=== PATIENT | male | born 1985 ===

== ENCOUNTER 2016-09-03 20:33 | Emergency (ER) | payer SELFPAY ==
[2016-09-03 20:41] VITALS: PULSE 63; RESP 16; TEMP 98.4; O2SAT 95
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
[2016-09-03] MEDS ORDERED: HYDROCOD/APAP 5/325 PREPACK#6 BTL TAKEHOME ONE (21:13)
== END 2016-09-03 21:23 | disposition home or self-care (01) ==
DX: S09.93XA Unspecified injury of face, initial encounter (principal); W50.1XXA Accidental kick by another person, initial encounter; Y93.75 Activity, martial arts